=== PATIENT | male | born 1965 | race Caucasian/White ===

== ENCOUNTER 2020-03-16 13:35 | Outpatient (RCR) | payer MEDICARE, MEDICAID, SELFPAY ==
--- NOTE | 2020-03-16 15:56 | PTOPEVAL ---
Thank you for referring Yves Mcclain to [facility].? The patient is scheduled to be seen for therapy? ___3_x/week for _12 vists. Please review, sign, date and return this plan of care HANG. I agree with and certify that the following plan of care is medically necessary. Referring Physician Date Admitting Provider: Attending Provider: Lucio Gibbs, PA Referring Provider: *PT Outpatient Evaluation Start: 03/16/20 14:01 Freq: Status: Active Protocol: Document 03/16/20 14:02 CHAPIN (Rec: 03/16/20 15:05 CHAPIN [email or web address]) Therapy Assessment Status Assessment Status Assessment Status Evaluation Evaluation Information Problem Diagnosis left knee pain Onset 02/13/21 Subjective Information Pt. reports that he developed Query Text:As Reported By Patient/ knee pain about 1 month ago. Family He recalls no specific injury just increasing soreness. He states that he is also having back pain and will be getting injections in his back on . He states that pain is increased when trying to move after being seated for a long time or with standing for long periods of time. He describes his pain all on the inside of the knee and some pain in the back of the knee. He states that knee pain will wake him at night. He states that his goal is to decrease his knee pain. Prior Level of Function Activity Level (Last 3 Months) Occupation disability Hand Dominance Right Activity of Daily Living Ability Independent Indoor/Home Mobility Independent Community Mobility Independent Stairs Ability Independent Functional Cognition (Planning, Shopping Independent , Taking Medications) Cooking Yes Cleaning Yes Laundry Yes Shopping Yes Driving Yes Pain Assessment Pain Scale Pain Scale Used Numeric (1 - 10) Self Report Pain Assessment Left Knee(s) Reported Pain Level 8 Pain Description Aching Pain Frequency Continuous Lowest Pain Intensity 4 Greatest Pain Intensity 8 Pain Aggravating Factors Prolonged Position,Walking,
--- NOTE | 2020-04-29 13:05 | PCPTNOTE ---
patient called and cancelled appt today. ROBB
--- NOTE | 2020-05-24 17:14 | PCPTNOTE ---
Pt. attended a total of 9 treatment sessions from 03/16/20 to 04/27/20. He contacted the clinic after his last session stating that he had to see an oncology account specialist regarding a meniscus tear. He will be discharged from our care. Refer to pt. last daily note for discharge status. Joshua Prescott, MPT
== END 2020-04-27 09:18 | disposition home or self-care (01) ==
LOC: CHSPT 13:35
PROVIDERS: PCP Physician Assistant; Visit Provider Physician Assistant
DX: M25.562 Pain in left knee (principal)
CPT/HCPCS: 97014; 97110; 97161; G0283

== ENCOUNTER 2020-03-19 12:13 | Outpatient (CLI) | payer MEDICARE, MEDICAID, SELFPAY ==
--- NOTE | ~2020-03-19 | XR_ITS ---
EXAMINATION: XR knee LT 3V DATE: 03/19/2020 12:56 INDICATION: Left knee pain. TECHNIQUE: 3 views of left knee were obtained. COMPARISON: None. FINDINGS: Bone alignment is normal. No fracture. There is mild osteoarthritis of medial and patellofe moral compartments characterized by tiny marginal osteophytes. No knee joint effusion. IMPRESSION: 1. Mild left knee osteoarthritis. Reviewed, dictated and finalized at location A. WRITER
== END 2020-03-19 12:14 | disposition home or self-care (01) ==
PROVIDERS: PCP Physician Assistant; Visit Provider Physician Assistant
DX: M25.562 Pain in left knee (principal)
CPT/HCPCS: 73562

== ENCOUNTER 2020-06-29 10:50 | Outpatient (RCR) | payer MEDICARE, MEDICAID, SELFPAY ==
--- NOTE | 2020-06-29 11:57 | PTOPEVAL ---
Thank you for referring Yves Mcclain to [facility] [place].? The patient is scheduled to be seen for therapy? ____x/week for ___ weeks. Please review, sign, date and return this plan of care HANG. I agree with and certify that the following plan of care is medically necessary. Referring Physician Date Admitting Provider: Attending Provider: Flores Noel Referring Provider: NOAH Outpatient Evaluation Start: 06/29/20 10:59 Freq: Status: Active Protocol: Document 06/29/20 11:00 ACR (Rec: 06/29/20 11:57 ACR [id number]) Therapy Assessment Status Assessment Status Assessment Status Evaluation Evaluation Information Problem Diagnosis L knee arthroscopy and menisectomy Onset 06/10/20 Subjective Information Patient states since surgery Query Text:As Reported By Patient/ he has been doing pretty good. Family He states that walking, standing, stairs, and squatting are all difficult. He has 5 stairs to get into the house and he states they are okay, but still difficult. He is not taking any medication for his knee anymore. Patient states he is going back to see the surgeon in a couple weeks. Prior Level of Function Activity Level (Last 3 Months) Occupation disabled Hand Dominance Right Activity of Daily Living Ability Independent Indoor/Home Mobility Independent Community Mobility Independent Stairs Ability Independent Functional Cognition (Planning, Shopping Independent , Taking Medications) Cooking Yes Cleaning Yes Laundry Yes Shopping Yes Driving Yes Pain Assessment Timing of Pain Assessment Timing of Pain Assessment Assessment Pain Scale Pain Scale Used Numeric (1 - 10) Self Report Pain Assessment Left Knee(s) Reported Pain Level 5 Pain Description Aching,Numbness,Sharp,Shooting Greatest Pain Intensity 7 Pain Score Pain Score 5: Self Report Interventions Used Interventions Used By Clinicians Activity or ADL's,Exercise,Ice Lower Extremity Range of Motion General Lower Extremity Range of Motion Gross Lower Extremity Range of Motion L knee AROM: 0-9-128 Comments Lower Extremity Muscle Strength Testing Knee Strength Right Knee Flexion Strength 5 Normal Knee Ex
--- NOTE | 2020-07-22 08:09 | PCPTNOTE ---
Liu Mcclain has participated in 8 physical therapy visits for L knee arthoscopy and meniscectomy. The patient demonstrates improved knee ROM (0-5-128). We are utilizing [place] [facility] stimulation to improve quadricep strength. Patient reports minimal pain in the knee and is progressing well with CKC and [place] exercises. He has increased back pain at this time that we have been modulating with e-stim. Thank you for this referral, ENRICO WomackT
== END 2020-07-30 10:42 | disposition home or self-care (01) ==
LOC: CHSPT 10:50
DX: Z47.89 Encounter for other orthopedic aftercare (principal); Z98.890 Other specified postprocedural states; S82.142D Displaced bicondylar fracture of left tibia, subsequent encounter for closed fracture with routine healing
CPT/HCPCS: 97016; 97110; 97161; 97530

== ENCOUNTER 2021-08-09 08:49 | Outpatient (RCR) | payer MEDICARE, MEDICAID, SELFPAY ==
--- NOTE | 2021-08-09 09:43 | PTOPEVAL ---
Thank you for referring Yves Mcclain to [facility].? The patient is scheduled to be seen for therapy? ____x/week for ___ weeks. Please review, sign, date and return this plan of care HANG. I agree with and certify that the following plan of care is medically necessary. Referring Physician Date Admitting Provider: Attending Provider: YANDEL SAEZ Referring Provider: NOAH Outpatient Evaluation Start: 08/09/21 08:53 Freq: Status: Active Protocol: Document 08/09/21 09:00 [facility] (Rec: 08/09/21 09:43 [facility] [email or web address]) Therapy Assessment Status Assessment Status Assessment Status Evaluation Evaluation Information Problem Diagnosis s/p cervical disc replacement (C5-6) Onset 07/13/21 Additional Evaluation Detail ndi = 28% functionally declined Subjective Information patient reports he had Query Text:As Reported By Patient/ cervical disc replacement on Family 07/13/21. he reports he had no complications with the curgery, and had a replacement of the disc between C5-6. he reports prior to surgery he was having numbness in his bilateral hands (in the tips of the fingers), and this began to progress to a loss of strength. he reports he continues to have this weakness and numbness since surgery. he reports his primary care is worried he may have MS based on some new scans of the brain. he reports he is restricted to lifting no more than 10lbs. he reports he struggles swith mowing grass, tieing shoes, and any small activities with his hands. Prior Level of Function Comments Additional Prior Level of Function patient reports he has been Comments having trouble with the same symptoms since prior to surgery. he reports he has been having symptoms for 6-7 months prior to surgery. Pain Assessment Timing of Pain Assessment Timing of Pain Assessment Assessment Pain Scale Pain Scale Used Numeric (1 - 10) Self Report Pain Assessment Neck Reported Pain Level 0
--- NOTE | 2021-09-07 07:53 | PTOPEVAL ---
Thank you for referring Yves Mcclain to [facility] [place].? The patient is scheduled to be seen for therapy? ____x/week for ___ weeks. Please review, sign, date and return this plan of care HANG. I agree with and certify that the following plan of care is medically necessary. Referring Physician Date Admitting Provider: Attending Provider: YANDEL SAEZ Referring Provider: NOAH Outpatient Evaluation Start: 08/09/21 08:53 Freq: Status: Active Protocol: Document 09/07/21 07:00 [facility] (Rec: 09/07/21 07:53 [facility] [email or web address]) Therapy Assessment Status Assessment Status Assessment Status Progress Evaluation Information Problem Diagnosis s/p cervical disc replacement (C5-6) Onset 07/13/21 Subjective Information patient reports he feels Query Text:As Reported By Patient/ Alright this date. he reports Family he is sore in the lower back today. he reports he is doing exercises at home, and they are going well. he reports he still has the most difficulty with core and balance activities. Pain Assessment Timing of Pain Assessment Timing of Pain Assessment Assessment Pain Scale Pain Scale Used Numeric (1 - 10) Self Report Pain Assessment Lower Back Reported Pain Level 5 Neck Reported Pain Level 0 Pain Score Pain Score 5,0: Self Report Interventions Used Interventions Used By Clinicians Activity or ADL's,Education, Exercise Cervical and Lumbar ROM Cervical ROM Cervical Flexion (0-60) 40 Query Text:Active in Degrees Cervical Extension (0-70) 60 Query Text:Active in Degrees Cervical Lateral Flexion Right (0-50) 35 Query Text:Active in Degrees Cervical Lateral Flexion Left (0-50) 30 Query Text:Active in Degrees Cervical Rotation Right (0-90) 80 Query Text:Active in Degrees Cervical Rotation Left (0-90) 70 Query Text:Active in Degrees Cervical and Lumbar Muscle Testing Cervical Muscle Testing Deep Cervical Flexion 30 seconds hold Lumbar Strength Upper Abdominal Strength 4-Good- Lower Abdominal Strength 3+Fair+ Lumbar Functional Strength Comments patient able to hold PPT in supine with TA contraction with legs extended and 12 inches off the bed. 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
--- NOTE | 2021-09-16 08:12 | PTOPEVAL ---
Thank you for referring Yves Mcclain to [facility] [place] The patient is scheduled to be seen for therapy? ____x/week for ___ weeks. Please review, sign, date and return this plan of care HANG. I agree with and certify that the following plan of care is medically necessary. Referring Physician Date Admitting Provider: Attending Provider: YANDEL SAEZ Referring Provider: NOAH Outpatient Evaluation Start: 08/09/21 08:53 Freq: Status: Active Protocol: Document 09/16/21 06:58 [facility] (Rec: 09/16/21 08:12 [facility] [email or web address]) Therapy Assessment Status Assessment Status Assessment Status Discharge Evaluation Information Problem Diagnosis s/p cervical disc replacement (C5-6) Onset 07/13/21 Additional Evaluation Detail ndi = 0% functionally declined Subjective Information patient reports he feels Good Query Text:As Reported By Patient/ this date in respect to his Family cevical spine. he reports he does still have pain in his lower back. Pain Assessment Timing of Pain Assessment Timing of Pain Assessment Assessment Pain Scale Pain Scale Used Numeric (1 - 10) Self Report Pain Assessment Lower Back Reported Pain Level 5 Neck Reported Pain Level 0 Pain Score Pain Score 5,0: Self Report Interventions Used Interventions Used By Clinicians Activity or ADL's,Electrical Stimulation,Exercise,Heat Cervical and Lumbar ROM Cervical ROM Cervical Flexion (0-60) 40 Query Text:Active in Degrees Cervical Extension (0-70) 60 Query Text:Active in Degrees Cervical Lateral Flexion Right (0-50) 35 Query Text:Active in Degrees Cervical Lateral Flexion Left (0-50) 35 Query Text:Active in Degrees Cervical Rotation Right (0-90) 80 Query Text:Active in Degrees Cervical Rotation Left (0-90) 75 Query Text:Active in Degrees Cervical and Lumbar Muscle Testing Lumbar Strength Upper Abdominal Strength 4-Good- Lower Abdominal Strength 3+Fair+ Upper Extremity Muscle Strength Testing General Upper Extremity Strength Gross Upper Extremity Strength Comments 77.8lbs 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
== END 2021-09-16 16:34 | disposition home or self-care (01) ==
LOC: CHSPT 08:49
DX: M54.12 Radiculopathy, cervical region (principal)
CPT/HCPCS: 97014; 97110; 97112; 97161; G0283